=== PATIENT | female | born 1945 | race Caucasian/White ===

== ENCOUNTER 2017-10-25 04:47 | Inpatient (IN) | payer MEDICARE ==
[~2017-10-25] VITALS: Ht 157.5 cm; Wt 93.6 kg
[2017-10-25 05:24] LABS: BASOPHILS % (AUTO) 0.7 % (0.0-5.0); EOSINOPHILS % (AUTO) 0.3 % (0.0-8.0); HEMATOCRIT 38.3 % (36-48); LYMPHOCYTES % (AUTO) 15.7 % (21.0-51.0); MEAN CORPUSCULAR HEMOGLOBIN 30.3 pg (27.0-33.0); MEAN CORPUSCULAR HGB CONC 33.9 g/dL (32.0-36.0); MEAN CORPUSCULAR VOLUME 89.4 fL (79-99); MONOCYTES % (AUTO) 4.9 % (3.0-13.0); NEUTROPHILS % (AUTO) 78.4 % (40.0-77.0); PLATELET COUNT (AUTO) 221 K/uL (130-400); RED BLOOD CELL COUNT(AUTO) 4.29 MIL/uL (4.00-5.50); WHITE BLOOD COUNT (AUTO) 10.8 K/uL (4.8-10.8)
[2017-10-25] MEDS ORDERED: SODIUM CHLORIDE 0.9% 1000ML 3,000 ML IV ONE (05:25)
[2017-10-25] MEDS ORDERED: ACETAMINOPHEN 325 MG TAB ONE (05:26)
[2017-10-25] MEDS ORDERED: LEVOFLOXACIN 500 MG/D5W 100 ML 100 ML ONE (05:26)
[2017-10-25] MEDS ORDERED: IPRATROPIUM/ALBUTEROL SULFATE 3 ML SOLUTION IH ONE ×3 (05:37→14:35)
[2017-10-25 05:38] LABS: CARBON DIOXIDE 27 mmol/L (21-32); CHLORIDE 100 mmol/L (101-111); CREATININE 0.8 mg/dL (0.5-1.5); GLOMERULAR FILTR. RATE CALC 75 mL/min (>60); GLUCOSE,RANDOM 122 mg/dL (70-105); POTASSIUM 3.6 mmol/L (3.5-5.1); SODIUM SERUM 139 mmol/L (136-145); UREA NITROGEN, BLOOD 17 mg/dL (7-18)
[2017-10-25 05:39] LABS: INR 0.86 (0.85-1.15); PARTIAL THROMBOPLASTIN TIME 21.5 SEC (26.3-35.5); PROTHROMBIN TIME 9.1 SEC (9.6-11.6)
[2017-10-25 05:52] LABS: ALANINE AMINOTRANSFERASE 49 U/L (12-78); ALBUMIN 3.8 g/dL (3.5-5.0); ASPARTATE AMINOTRANSFERASE 20 U/L (10-37); BILIRUBIN,TOTAL 0.3 mg/dL (0.2-1.0); CREATINE KINASE MB < 0.5 ng/mL (0.5-3.6); CREATINE KINASE, TOTAL 42 U/L (21-232); MYOGLOBIN 33 ng/mL (10-92); TOTAL PROTEIN, SERUM 7.6 g/dL (6.0-8.3); TROPONIN I < 0.04 ng/mL (0.00-0.06)
[2017-10-25 06:00] LABS: APPEARANCE,URINE Cloudy (CLEAR); BILIRUBIN,URINE Negative (NEGATIVE); COLOR,URINE Yellow (YELLOW); GLUCOSE, URINE (UA) Negative (NEGATIVE); KETONES,URINE 15 mg/dL (NEGATIVE); LEUKOCYTE ESTERASE ,URINE Trace (NEGATIVE); NITRATE,URINE Negative (NEGATIVE); OCCULT BLOOD,URINE Negative (NEGATIVE); PROTEIN,URINE Negative (NEGATIVE); UROBILINOGEN,URINE 0.2 mg/dL (0.2-1.0)
[2017-10-25 06:02] LABS: BACTERIA,URINE Few /HPF (None Seen); RBC,URINE None Seen /HPF (0-1)
[2017-10-25] MEDS ORDERED: MEROPENEM 1 GM VIAL ONE (06:02)
[2017-10-25 06:03] LABS: AMORPHOUS SEDIMENT,UR Many /LPF (None Seen); SQUAMOUS EPITHELIAL CELL,UR None Seen /LPF (0-2)
[2017-10-25] MEDS ORDERED: OSELTAMIVIR PHOSPHATE 75 MG CAP ONE (07:50)
[2017-10-25] MEDS ORDERED: IBUPROFEN 600 MG TABLET ONE (10:33)
[2017-10-25] MEDS ORDERED: SODIUM CHLORIDE 0.9% 1000ML 1,000 ML IV ONE (10:52)
[2017-10-25 15:05] LABS: CREATINE KINASE MB < 0.5 ng/mL (0.5-3.6); CREATINE KINASE, TOTAL 67 U/L (21-232); MYOGLOBIN 71 ng/mL (10-92); TROPONIN I < 0.04 ng/mL (0.00-0.06)
[2017-10-25 15:19] VITALS: BP 136/67
[2017-10-25] MEDS ORDERED: CLON1TAB4 PO (16:16)
[2017-10-25] MEDS ORDERED: LEVO75TA4 PO (16:16)
[2017-10-25] MEDS ORDERED: PRAV40TA3 PO (16:16)
[2017-10-25] MEDS ORDERED: ESOM40CA PO (16:16)
[2017-10-25] MEDS ORDERED: METO-391 PO (16:16)
[2017-10-25] MEDS: SODIUM CHLORIDE 0.9% 1000ML 1,000 ML IV SCH (17:41)
[2017-10-25] MEDS: IBUPROFEN 600 MG TABLET PO PRN (18:22)
[2017-10-25] MEDS: IPRATROPIUM/ALBUTEROL SULFATE 3 ML SOLUTION IH SCH ×2 (18:26→21:51)
[2017-10-25 19:59] VITALS: BP 125/55
[2017-10-25] MEDS: OSELTAMIVIR PHOSPHATE 75 MG CAP PO SCH (20:59)
[2017-10-25 23:06] LABS: CREATINE KINASE MB < 0.5 ng/mL (0.5-3.6); CREATINE KINASE, TOTAL 77 U/L (21-232); MYOGLOBIN 48 ng/mL (10-92); TROPONIN I < 0.04 ng/mL (0.00-0.06)
[2017-10-26] VITALS (8 sets, daily range): BP systolic 106–132; BP diastolic 50–64
[2017-10-26] MEDS: IPRATROPIUM/ALBUTEROL SULFATE 3 ML SOLUTION IH SCH ×6 (01:53→21:33)
[2017-10-26] MEDS: SODIUM CHLORIDE 0.9% 1000ML 1,000 ML IV SCH ×2 (02:21→18:53)
[2017-10-26] MEDS: ACETAMINOPHEN 325 MG TAB PO PRN ×2 (02:21→14:59)
[2017-10-26] MEDS: LEVOFLOXACIN 500 MG/D5W 100 ML 100 ML IV SCH (05:10)
[2017-10-26] MEDS: OSELTAMIVIR PHOSPHATE 75 MG CAP PO SCH ×2 (09:10→20:41)
[2017-10-26] MEDS: IBUPROFEN 600 MG TABLET PO PRN ×2 (09:11→20:49)
[2017-10-26] MEDS: METHYLPREDNISOLONE SOD SUCC 40MG/ML 1ML IVP SCH ×3 (10:28→20:40)
[2017-10-26] MEDS: FAMOTIDINE 20MG TAB 20 MG TAB PO SCH ×2 (10:36→20:41)
[2017-10-26] MEDS: ATORVASTATIN CALCIUM 10 MG TABLET PO SCH (20:40)
[2017-10-26] MEDS: METOPROLOL TARTRATE 25 MG TAB PO SCH (20:40)
[2017-10-26] MEDS: CLONAZEPAM 0.5 MG TABLET PO SCH (20:40)
[2017-10-26] MEDS ORDERED: FAMOTIDINE 20MG TAB 20 MG TAB PO SCH (21:00)
[2017-10-27] MEDS: METHYLPREDNISOLONE SOD SUCC 40MG/ML 1ML IVP SCH ×3 (00:36→17:33)
[2017-10-27] MEDS: ACETAMINOPHEN 325 MG TAB PO PRN ×3 (00:44→22:18)
[2017-10-27] MEDS: IPRATROPIUM/ALBUTEROL SULFATE 3 ML SOLUTION IH SCH ×6 (02:06→22:30)
[2017-10-27 03:00] VITALS: BP 121/64
[2017-10-27] MEDS: LEVOFLOXACIN 500 MG/D5W 100 ML 100 ML IV SCH (05:41)
[2017-10-27] MEDS: LEVOTHYROXINE 75 MCG TABLET PO SCH (06:35)
[2017-10-27 08:06] VITALS: BP 144/67
[2017-10-27] MEDS: ENOXAPARIN SODIUM 30 MG/0.3 ML SQ SCH (08:50)
[2017-10-27] MEDS: IBUPROFEN 600 MG TABLET PO PRN (08:50)
[2017-10-27] MEDS: FAMOTIDINE 20MG TAB 20 MG TAB PO SCH ×2 (08:50→20:30)
[2017-10-27] MEDS: OSELTAMIVIR PHOSPHATE 75 MG CAP PO SCH (08:51)
[2017-10-27] MEDS: METOPROLOL TARTRATE 25 MG TAB PO SCH ×2 (08:51→20:30)
[2017-10-27] MEDS ORDERED: PANTOPRAZOLE SODIUM 40 MG TABLET.DR PO SCH (09:00)
[2017-10-27 11:40] VITALS: BP 157/66
[2017-10-27 16:28] VITALS: BP 167/72
[2017-10-27] MEDS: SODIUM CHLORIDE 0.9% 1000ML 1,000 ML IV SCH (17:33)
[2017-10-27 19:00] VITALS: BP 150/70
[2017-10-27] MEDS: ATORVASTATIN CALCIUM 10 MG TABLET PO SCH (20:30)
[2017-10-27] MEDS: CLONAZEPAM 0.5 MG TABLET PO SCH (20:30)
[2017-10-27 23:00] VITALS: BP 164/70
[2017-10-28] VITALS (7 sets, daily range): BP systolic 133–178; BP diastolic 68–81
[2017-10-28] MEDS: METHYLPREDNISOLONE SOD SUCC 40MG/ML 1ML IVP SCH ×2 (01:33→09:51)
[2017-10-28] MEDS: IPRATROPIUM/ALBUTEROL SULFATE 3 ML SOLUTION IH SCH ×6 (01:53→22:13)
[2017-10-28] MEDS ORDERED: HYDRALAZINE HCL 20 MG/ML VIAL ONE (04:40)
[2017-10-28] MEDS ORDERED: HYDRALAZINE HCL 20 MG/ML VIAL IV PRN (04:45)
[2017-10-28] MEDS: LEVOTHYROXINE 75 MCG TABLET PO SCH (06:00)
[2017-10-28] MEDS: LEVOFLOXACIN 500 MG/D5W 100 ML 100 ML IV SCH (06:00)
[2017-10-28] MEDS: METOPROLOL TARTRATE 25 MG TAB PO SCH ×2 (09:51→20:48)
[2017-10-28] MEDS: FAMOTIDINE 20MG TAB 20 MG TAB PO SCH ×2 (09:51→20:48)
[2017-10-28] MEDS: IBUPROFEN 600 MG TABLET PO PRN ×2 (09:51→17:30)
[2017-10-28] MEDS: ENOXAPARIN SODIUM 30 MG/0.3 ML SQ SCH (09:52)
[2017-10-28] MEDS: BENZONATATE 100 MG CAPSULE PO SCH ×2 (14:38→20:48)
[2017-10-28] MEDS: LACTULOSE 20 GM/30 ML UDCUP PO SCH (20:48)
[2017-10-28] MEDS: CLONAZEPAM 0.5 MG TABLET PO SCH (20:48)
[2017-10-28] MEDS: ATORVASTATIN CALCIUM 10 MG TABLET PO SCH (20:48)
[2017-10-29] MEDS: IPRATROPIUM/ALBUTEROL SULFATE 3 ML SOLUTION IH SCH ×3 (02:08→09:39)
[2017-10-29 03:00] VITALS: BP 146/68
[2017-10-29] MEDS: ACETAMINOPHEN 325 MG TAB PO PRN (05:51)
[2017-10-29] MEDS: LEVOFLOXACIN 500 MG/D5W 100 ML 100 ML IV SCH (07:08)
[2017-10-29] MEDS: LEVOTHYROXINE 75 MCG TABLET PO SCH (07:09)
[2017-10-29 07:54] VITALS: BP 175/77
[2017-10-29] MEDS: BENZONATATE 100 MG CAPSULE PO SCH (08:27)
[2017-10-29] MEDS: METOPROLOL TARTRATE 25 MG TAB PO SCH (08:27)
[2017-10-29] MEDS: FAMOTIDINE 20MG TAB 20 MG TAB PO SCH (08:27)
[2017-10-29] MEDS: ENOXAPARIN SODIUM 30 MG/0.3 ML SQ SCH (08:28)
[2017-10-29] MEDS: LACTULOSE 20 GM/30 ML UDCUP PO SCH (08:29)
[2017-10-29] MEDS ORDERED: PREDNISONE 20 MG TABLET PO SCH (09:00)
[2017-10-29] MEDS ORDERED: LEVO500T2 PO (09:30)
[2017-10-29] MEDS ORDERED: PRED20TA3 PO (09:30)
[2017-10-29 11:48] VITALS: BP 174/79
== END 2017-10-29 12:39 | disposition home or self-care (01) | DRG 202 ==
LOC: EDH 04:47 → EDHIP 07:34 → 4BH 15:06
PROVIDERS: ADMIT Family Medicine; ATTEND Family Medicine
PROC: 5A09357 Assistance with Respiratory Ventilation, Less than 24 Consecutive Hours, Continuous Positive Airway Pressure (ICD-10-PCS; principal; 2017-10-25)
DX: J20.9 Acute bronchitis, unspecified (principal); E87.2 Acidosis; E03.9 Hypothyroidism, unspecified; E78.5 Hyperlipidemia, unspecified; I10 Essential (primary) hypertension; Z87.891 Personal history of nicotine dependence; Z90.710 Acquired absence of both cervix and uterus; Z88.5 Allergy status to narcotic agent; Z88.0 Allergy status to penicillin; Z88.2 Allergy status to sulfonamides; Z88.8 Allergy status to other drugs, medicaments and biological substances; Z98.49 Cataract extraction status, unspecified eye
CPT/HCPCS: 36415; 71046; 80053; 81001; 82550; 82553; 83605; 83874; 84484; 84702; 85025; 85610; 85730; 87040; 87088; 87633; 87804; 93005; 94640; 94664; J0360; J1650; J1956; J2185; J2920; J7030